=== PATIENT | male | born 1970 | race Caucasian/White ===

== ENCOUNTER 2023-07-09 07:17 | Inpatient (IN) ==
--- NOTE | 2023-07-07 09:31 | Anesthesiology Consultation ---
Date of Service July 07, 2023 Assessment & Plan (1) Encounter for pre-operative examination: - check type and screen STAT am DOS. - Per tandem mill roller on 07/01/23: No known infectious disease contacts, current infectious disease symptoms in past 10 days or COVID positive test result in the past 30 days. Acceptable to proceed pending anesthesiologist evaluation am DOS regarding persistent minimal cough and sinus drainage since 04/2023 illness. Chart Review Chart Review: Acceptable Risk for Surgery and Patient NOT seen in Pre Admission Testing History Surgery Operation Date: 07/09/23 07:45 Proposed Procedures p L2-S1 Decompression Fusion, Spinal Cord Monitoring - Srini Rosa DO Height/Weight Height: 5 ft 6 in Weight: 114.305 kg Allergies Allergy/AdvReac Type Severity Reaction Status Date / Time No Known Allergies Allergy Verified 07/01/23 11:52 Medications Home Medications Medication Instructions Recorded Confirmed Last Taken Cbd Oil 1 dose UD 07/01/23 07/01/23 Unknown acetaminophen 650 mg 650 - 1,300 mg PO TID 07/01/23 07/01/23 Unknown tablet,extended release albuterol sulfate 90 mcg/actuation 1 inh inhalation UD PRN asthma 07/01/23 07/01/23 Unknown aerosol inhaler amlodipine 5 mg tablet 5 mg PO QAM 07/01/23 07/01/23 Unknown diclofenac sodium 1 % topical gel 2 g topical DAILY 07/01/23 07/01/23 Unknown dupilumab 300 mg/2 mL subcutaneous 300 mg subcut UD 07/01/23 07/01/23 Unknown syringe (Dupixent) escitalopram oxalate 10 mg tablet 10 mg PO QPM 07/01/23 07/01/23 Unknown (Lexapro) fluticasone propionate 110 1 puff inhalation BID 07/01/23 07/01/23 Unknown mcg/actuation HFA aerosol inhaler fluticasone propionate 50 1 spray intranasal BID 07/01/23 07/01/23 Unknown mcg/actuation nasal spray,suspension hydrochlorothiazide 12.5 mg tablet 12.5 mg PO QAM 07/01/23 07/01/23 Unknown ibuprofen 200 mg tablet 400 mg PO QID PRN Pain 07/01/23 07/01/23 Unknown levocetirizine 5 mg tablet (Xyzal) 5 mg PO QPM 07/01/23 07/01/23 Unknown levothyroxine 25 mcg tablet 50 mcg PO QAM 07/01/23 07/01/23 Unknown losartan 50 mg tablet 50 mg PO QAM 07/01/23 07/01/23 Unknown multivitamin 1 cap PO QAM 07/01/23 07/01/23 Unknown naproxen 500 mg tablet 500 mg PO BID 07/01/23 07/01/23 Unknown omeprazole 20 mg tablet,delayed 20 mg PO QAM 07/01/23 07/01/23 Unknown release secukinumab 150 mg/mL subcutaneous 300 mg subcut UD 07/01/23 07/01/23 Unknown syringe (Cosentyx) Past Medical History Medical History Acid reflux Ankylosing spondylitis Asthma controlled/last use rescue inhaler yrs ago. History of anesthesia reaction hx short tempered/not violent. HTN (hypertension) Legg-Perthes disease hx Pinched nerve lumbar Sinus problem sinus inflammation. Thyroid disease Past Surgical History Surgical History History of carpal tunnel release of both wrists History of ear surgery History of foot surgery right History of sinus surgery History of tonsillectomy History of total left hip replacement History of urologic surgery hx kinked ureter, 2 stent sx's and 1 open procedure for. Social History Smoking Status: Never smoker Do You Dip or Chew Tobacco: No Hx Alcohol Use: No Hx Substance Use: No substance use type: does not use Testing Laboratory Results 05/24/2023 WBC: 5.8 H/H: 14/41 PLATELETS: 254,000 SODIUM: 137 POTASSIUM: 4.1 CHLORIDE: 99 CO2: 29 BUN: 13 CREATININE: 1 GLUCOSE: 101 PT: 12 PTT: 28 INR: 1 Electrocardiogram Date: 05/24/23 Sinus rhythm with occasional PVCs, rate 72 bpm Chest X-Ray Date: 06/21/23 No acute findings Other Testing Surgeon's office notified no UA or type and screen were done which are typically ordered by Dr. Rosa. Type and screen is required by [facility] and will be ordered DOS. To surgeon's discretion/coordination if UA/urine culture will be needed.
[~2023-07-09 07:17] MED LIST: ACETAMINOPHEN 500 MG TAB PO SCH; CeleBREX 200 MG CAP PO SCH; GABAPENTIN 600 MG DOSE PO SCH; LR 15ML/HR IV SCH; LR 60ML/HR IV SCH; ceFAZolin 2000MG 2,000 MG/15 ML SYR IV SCH
[2023-07-09] MEDS ORDERED: BUPIVACAINE/EPINEPHRINE 0.5% MPF 1:200,000 30 ML VIAL ONE (07:51)
[2023-07-09] MEDS ORDERED: ceFAZolin 330 MG/ML 1 GM VIAL ONE (07:51)
[2023-07-09] MEDS ORDERED: fentaNYL citrate PF 100 MCG/2 ML VIAL ONE (08:53)
[2023-07-09] MEDS ORDERED: MIDAZOLAM HCL 1 MG/ML 2ML VIAL ONE (08:53)
[2023-07-09] MEDS ORDERED: HYDROmorphone INJ 1 MG/ML SYRINGE IV PRN ×2 (08:56→14:55)
[2023-07-09] MEDS ORDERED: ONDANSETRON INJ 2 MG/ML 2 ML VIAL IV PRN ×2 (08:56→14:55)
[2023-07-09] MEDS ORDERED: fentaNYL citrate PF 100 MCG/2 ML VIAL IV PRN (08:56)
[2023-07-09] MEDS ORDERED: ePHEDrine sulfate 50 MG/ML AMP IV PRN (08:56)
[2023-07-09] MEDS ORDERED: ATROPINE SULFATE 0.1 MG/ML 10ML SYR IV PRN (08:56)
--- NOTE | 2023-07-09 09:01 | History & Physical Report ---
Date of Service July 09, 2023 Assessment & Plan (1) Neurogenic claudication due to lumbar spinal stenosis: Plan: L2-S1 decompression and fusion History of Present Illness Chief Complaint: Back and leg pain Primary Care Provider: Estefania Lanza PA-C This is a 53-year-old male who presents with chronic persistent back and leg pain and failing since course of nonoperative care is here for surgical intervention. Allergies Allergy/AdvReac Type Severity Reaction Status Date / Time No Known Allergies Allergy Verified 07/09/23 07:47 Home Medications Medication Instructions Recorded Confirmed Type Cbd Oil 1 dose UD 07/01/23 07/09/23 History acetaminophen 650 mg 650 - 1,300 mg PO TID 07/01/23 07/09/23 History tablet,extended release albuterol sulfate 90 mcg/actuation 1 inh inhalation UD PRN asthma 07/01/23 07/09/23 History aerosol inhaler amlodipine 5 mg tablet 5 mg PO QAM 07/01/23 07/09/23 History diclofenac sodium 1 % topical gel 2 g topical DAILY 07/01/23 07/09/23 History dupilumab 300 mg/2 mL subcutaneous 300 mg subcut UD 07/01/23 07/09/23 History syringe (Dupixent) escitalopram oxalate 10 mg tablet 10 mg PO QPM 07/01/23 07/09/23 History (Lexapro) fluticasone propionate 110 1 puff inhalation BID 07/01/23 07/09/23 History mcg/actuation HFA aerosol inhaler fluticasone propionate 50 1 spray intranasal BID 07/01/23 07/09/23 History mcg/actuation nasal spray,suspension hydrochlorothiazide 12.5 mg tablet 12.5 mg PO QAM 07/01/23 07/09/23 History ibuprofen 200 mg tablet 400 mg PO QID PRN Pain 07/01/23 07/09/23 History levocetirizine 5 mg tablet (Xyzal) 5 mg PO QPM 07/01/23 07/01/23 History levothyroxine 25 mcg tablet 50 mcg PO QAM 07/01/23 07/09/23 History losartan 50 mg tablet 50 mg PO QAM 07/01/23 07/09/23 History multivitamin 1 cap PO QAM 07/01/23 07/09/23 History naproxen 500 mg tablet 500 mg PO BID 07/01/23 07/09/23 History omeprazole 20 mg tablet,delayed 20 mg PO QAM 07/01/23 07/09/23 History release secukinumab 150 mg/mL subcutaneous 300 mg subcut UD 07/01/23 07/09/23 History syringe (Cosentyx) acidophilus 100 million 1 cap PO BID 07/09/23 07/09/23 History cell-pectin, citrus 10 mg capsule Past Med/Surg History Medical History Acid reflux Ankylosing spondylitis Asthma controlled/last use rescue inhaler yrs ago. History of anesthesia reaction hx short tempered/not violent. HTN (hypertension) Legg-Perthes disease hx Pinched nerve lumbar Sinus problem sinus inflammation. Thyroid disease Surgical History History of carpal tunnel release of both wrists History of ear surgery History of foot surgery right History of sinus surgery History of tonsillectomy History of total left hip replacement History of urologic surgery hx kinked ureter, 2 stent sx's and 1 open procedure for. Social History Smoking Status: Never smoker Do You Dip or Chew Tobacco: No; Hx Alcohol Use: No Hx Substance Use: No Preferred Language: Portuguese Communication Ability: Effective Robotic Machine Operator Required: No Beliefs That Will Affect Care: None Current Living Situation: Spouse and Family Other Information That Helps Us Care for You: No Feels Safe at Home: Yes Assistive Devices: Cane and Glasses Physical Exam Physical Exam: Patient is alert and oriented Heart regular in rhythm Lungs clear Results & Data Results & Data Vital Signs (Past 12 Hours) Vital Signs Temp Pulse Resp BP Pulse Ox O2 Del Method 07/09/23 07:45 36.8 C 77 18 138/84 96 Room Air
--- NOTE | 2023-07-09 09:01 | History & Physical Bridge Note ---
Date of Service July 09, 2023 History & Physical Bridge Note I have examined the patient, reviewed the History & Physical and in the interval since the performance of the History & Physical I have noted the following changes of clinical significance: no changes noted
[2023-07-09] MEDS ORDERED: HYDROmorphone INJ 2 MG/ML SYR/VIAL ONE (09:27)
[2023-07-09] MEDS ORDERED: PROPOFOL IV EMULSION 10 MG/ML 20 ML VIAL IV ONE (09:27)
[2023-07-09] MEDS ORDERED: KETAMINE HCL 10MG/ML SYR ONE (10:07)
[2023-07-09] MEDS ORDERED: ROCURONIUM BROMIDE 10 MG/ML 5 ML VIAL IV ONE ×2 (10:27→11:52)
[2023-07-09] MEDS ORDERED: ePHEDrine sulfate 50 MG/5 ML SYR ONE (10:34)
[2023-07-09] MEDS ORDERED: FLOSEAL HEMOSTATIC MATRIX 10ML TOP ONE (10:37)
[2023-07-09] MEDS ORDERED: DEXAMETHASONE SOD INJ 4 MG/ML VIAL ONE (10:50)
[2023-07-09] MEDS ORDERED: ONDANSETRON INJ 2 MG/ML 2 ML VIAL ONE (10:52)
[2023-07-09] MEDS ORDERED: SUGAMMADEX SODIUM 200 MG/2 ML VIAL IV ONE (10:53)
--- NOTE | 2023-07-09 12:56 | Operative Report ---
Post Operative Report Pre & Post Diagnosis Operation Date: 07/09/23 09:05 Pre-Op Diagnosis: Lumbar Disc Disease with Radiculopathy Lumbar spinal stenosis with neurogenic claudication Obesity Post-Op Diagnosis: Same I identified the patient and participated in the time-out.: Yes Procedure Operation Date: 07/09/23 09:05 Actual Procedures #1 lumbar decompression bilaterally facetectomies and foraminotomies L2-L3, L3- L4, L4-5 and L5-S1. #2 posterior spinal fusion L2-S1. #3 placed posterior segmental instrumentation L2-S1. #4 interbody fusion L3-L4, L4-5 and L5-S1. #5 placement Spira 12 x 26 mm at L3-L4 12 x 26 mm at L4-5 and 13 x 26 mm x 2 at L5- S1. #6 placement locally harvested morselized autograft in the posterior gutters per #7 placement of infuse collagen sponge combined with Koros in the posterior lateral gutters and Morpheus bone graft interbody space. Surgeon Srini Rosa, DO Yardage Control Operator Forming Ziggy Frank Estimated Blood Loss 850 Findings See Below Patient is 5 foot 6 weighing 114 kg with a BMI in excess of 40. Patient's body habitus did create significant technical difficulty from positioning exposure and the procedure self and at least 50% increased operative time. Specimens None Indications This is a 53-year-old male with above-mentioned diagnosis after failing since course of nonoperative care is here for surgical invention. Description of Procedure Patient met with identified informed consent obtained. Patient was then taken to the operative suite underwent patient placed in a prone position jacks table top Nigel frame. All bony prominences well-padded eyes inspected to ensure no external pressure spinal. This point the lumbar spine was prepped and draped in a sterile fashion. Sharp dissection with the assistance of Bovie cautery from down to and exposing the lamina transverse processes of L2-L3 L4-5 sacral ala bilaterally. From caudal cephalad fashion complete laminectomy of L5 L4 L3 and L2 was performed including bilateral medial facetectomies and foraminotomies addressing severe spinal stenosis. Pedicle screws were then placed in L2 L3-L4-L5 and S1 levels bilaterally with assistance of fluoroscopy and appropriate sized hawk placed. By way the transforaminal approach on the left and discectomy of L5-S1 was performed endplates guided to subcortical bleeding bone and a 13 x 26 mm Spira cage filled with Morpheus tapped in position. Then proceeded to L5-S1 transforaminal region on the right completed the discectomy curetted the endplates to subcortical bleeding bone and placed a second 13 x 26 mm Spira cage filled with Morpheus into position. And then proceeded to L for L5 and by way of transforaminal approach on the left complete discectomy performed endplates guided to subcortical bleeding bone and a 12 x 26 mm Spira cage filled with Morpheus tapped into position. Lastly I proceeded to L3-L4 and by way the transforaminal approach the left complete discectomy performed endplates guided to subcortical bleeding bone and a 13 x 26 mm Spira cage filled with Morpheus tapped in position per the rods then compressed locked into final position bilaterally. The transverse processes of L2-L3 L4-5 and sacral ala burred to subcortically bone. Infuse collagen sponge combined with Koros and local autograft placed in the posterior gutters. 15 round SEE inserted. The incision was then closed with 1 Vicryl the fascia 2-0 Vicryl subcutaneously and 4 Monocryl for final skin closure. Steri-Strips sterile dressing placed. Patient waken taken PACU stable condition. Please note spinal cord monitoring was utilized at the procedure no changes noted. Lastly Ziggy Frank was present at the entire surgeon while the patient positioning complex portion of the surgery and final skin closure. I attest to the content of the Intraoperative Record and any orders documented therein. Any exceptions are noted below.
--- NOTE | 2023-07-09 13:18 | Fluoroscopy Report ---
FL lumbar spine 2-3V CLINICAL HISTORY: L2-S1 DECOMPRESSION AND FUSION COMPARISON STUDY: None FLUOROSCOPY TIME: 34 seconds FLUOROSCOPY IMAGES: 4 EXPOSURE DOSE: 32.49 mGy FINDINGS: Posterior interbody rods and screw fusion hardware at L2-S1 with L3-S1 discectomy. Multilev el spondylotic spurring. No acute fracture or unexpected opaque foreign body identified. IMPRESSION: Fluoroscopic assistance as above. ACT 112: Negative or not required by law. Electronically signed by: Mandeep Platt M.D. 07/09/2023 1:17 PM
[2023-07-09] MEDS ORDERED: HYDROmorphone INJ 0.5 MG/0.5 ML SYR IV PRN (14:55)
[2023-07-09] MEDS ORDERED: ONDANSETRON 4 MG OD TAB PO PRN (14:55)
[2023-07-09] MEDS ORDERED: FAMOTIDINE 20 MG TAB PO PRN (14:55)
[2023-07-09] MEDS ORDERED: traMADol HCL 50 MG TABLET PO PRN (14:55)
[2023-07-09] MEDS ORDERED: LORazepam 0.5 MG TAB PO PRN (14:55)
[2023-07-09] MEDS ORDERED: diphenhydrAMINE Capsule 25 MG CAP PO PRN (14:55)
[2023-07-09] MEDS ORDERED: bisacodyL 10 MG SUPP PR PRN (14:55)
[2023-07-09] MEDS ORDERED: LORazepam 0.5 MG in SYRINGE 0.25 ML IV PRN (14:55)
[2023-07-09] MEDS ORDERED: DO NOT ADMINISTER PNEUMOCOCCAL VACCINE PRN (14:55)
[2023-07-09] MEDS ORDERED: MAGNESIUM HYDROXIDE SUSP 30 ML UDC PO PRN (14:55)
[2023-07-09] MEDS ORDERED: DO NOT ADMINISTER FLU VACCINE PRN (14:55)
[2023-07-09] MEDS ORDERED: ALUMINUM/MAGNESIUM SUSP 30 ML UDC PO PRN (14:55)
[2023-07-09] MEDS ORDERED: SOD PHOSPHATE/SOD BIPHOSPHATE ENEMA 132 ML BTL PR PRN (14:55)
[2023-07-09] MEDS ORDERED: METOCLOPRAMIDE HCL INJ 5 MG/ML 2 ML VIAL IV PRN (14:55)
[2023-07-09] MEDS ORDERED: PROMETHAZINE HCL 12.5 MG in SODIUM CHLORIDE 0.9% 50 ML IV PRN (14:55)
[2023-07-09] MEDS ORDERED: NALOXONE HCL 0.4 MG/1 ML VIAL/CARP IV PRN (14:55)
[2023-07-09] MEDS ORDERED: ACETAMINOPHEN 1,000 MG/100 ML VIAL IV PRN (14:55)
[2023-07-09] MEDS ORDERED: hydrOXYzine HCl 25 MG TAB PO PRN (14:55)
[2023-07-09] MEDS: LACTATED RINGER'S 1,000 ML IV SCH ×2 (14:55→19:56)
--- NOTE | 2023-07-09 14:55 | Anesthesiology Progress Note ---
Date of Service July 09, 2023 Anesthesia Post Procedure Vital Signs Vital Signs: Temp Pulse Pulse Resp BP Pulse Ox O2 Del Method 07/09/23 14:40 96 H 13 108/88 95 Nasal Cannula 07/09/23 14:30 92 H 12 112/82 92 Nasal Cannula 07/09/23 14:20 98.4 F 92 H 16 124/76 94 Nasal Cannula 07/09/23 14:10 101 H 20 103/71 94 Nasal Cannula 07/09/23 14:00 95 H 14 126/74 97 Oxymask 07/09/23 13:50 94 H 12 130/78 97 Oxymask 07/09/23 13:40 97 H 13 135/82 95 Oxymask 07/09/23 13:33 98.6 F 98 H 18 136/82 97 Oxymask 07/09/23 07:45 98.2 F 77 18 138/84 96 Room Air O2 Flow Rate 07/09/23 14:40 2 07/09/23 14:30 2 07/09/23 14:20 2 07/09/23 14:10 2 07/09/23 14:00 9 07/09/23 13:50 9 07/09/23 13:40 9 07/09/23 13:33 9 07/09/23 07:45 Pain Intensity Left Leg: Pain Intensity: 2 Back: Pain Intensity: 4 Transfer of Care Handoff Completed per policy Notes Mental Status: alert / awake / arousable and participated in evaluation Patient Amnestic to Procedure: Yes Nausea / Vomiting: adequately controlled Pain: adequately controlled Airway Patency, RR, SpO2: stable & adequate BP & HR: stable & adequate Hydration State: stable & adequate Anesthetic Complications: no major complications apparent and Pt Satisfied with anesthetic care
--- NOTE | 2023-07-09 15:29 | Hospitalist Consultation ---
Date of Consultation July 09, 2023 Assessment & Plan (1) Neurogenic claudication due to lumbar spinal stenosis: Pain / VTE / Bowel management per primary orthopedic team (2) Rash of hand: Localized petechiae - suspect unintentional trauma at time of surgery. Continue to monitor for alternative sites suggestive of underlying systemic problem. Platelets and coags with AM labs. (3) HTN (hypertension): Held losartan and HCTZ today but took amlodipine Given current BP measurements will place all on hold tomorrow but likely can restart amlodipine if BP stable without dizziness. (4) Acid reflux: Switch omeprazole to pantoprazole per hospital formulary (5) Hypothyroidism: TSH previously normal per patient but not on pre-op testing, no need to repeat Continue levothyroxine (6) Anxiety: Continue Lexapro (7) Obstructive sleep apnea: Patient may use own CPAP (8) Chronic sinusitis: Dupixent - took yesterday, continue as outpatient (9) Ankylosing spondylitis: Cosentyx last took on Wednesday Plan Thank you for the consult. We will continue to review the patient with post op labs tomorrow. History of Present Illness Reason for Consultation: Medical management Attending Physician: Srini Rosa, DO History of Present Illness Patricio Hung is a 53-year-old male POD#0 lumbar decompression. Estimated blood loss 850ml. Right hand rash just noticed since surgery around 6pm. No rash elsewhere. Not itchy. Otherwise no concerns or questions. He reports his chronic medical conditions notes above are well controlled. Allergies Allergy/AdvReac Type Severity Reaction Status Date / Time No Known Allergies Allergy Verified 07/09/23 07:47 Home Medications Medication Instructions Recorded Confirmed Type Cbd Oil 1 dose UD 07/01/23 07/09/23 History acetaminophen 650 mg 650 - 1,300 mg PO TID 07/01/23 07/09/23 History tablet,extended release albuterol sulfate 90 mcg/actuation 1 inh inhalation UD PRN asthma 07/01/23 07/09/23 History aerosol inhaler amlodipine 5 mg tablet 5 mg PO QAM 07/01/23 07/09/23 History diclofenac sodium 1 % topical gel 2 g topical DAILY 07/01/23 07/09/23 History dupilumab 300 mg/2 mL subcutaneous 300 mg subcut UD 07/01/23 07/09/23 History syringe (Dupixent) escitalopram oxalate 10 mg tablet 10 mg PO QPM 07/01/23 07/09/23 History (Lexapro) fluticasone propionate 110 1 puff inhalation BID 07/01/23 07/09/23 History mcg/actuation HFA aerosol inhaler fluticasone propionate 50 1 spray intranasal BID 07/01/23 07/09/23 History mcg/actuation nasal spray,suspension hydrochlorothiazide 12.5 mg tablet 12.5 mg PO QAM 07/01/23 07/09/23 History ibuprofen 200 mg tablet 400 mg PO QID PRN Pain 07/01/23 07/09/23 History levocetirizine 5 mg tablet (Xyzal) 5 mg PO QPM 07/01/23 07/01/23 History levothyroxine 25 mcg tablet 50 mcg PO QAM 07/01/23 07/09/23 History losartan 50 mg tablet 50 mg PO QAM 07/01/23 07/09/23 History multivitamin 1 cap PO QAM 07/01/23 07/09/23 History naproxen 500 mg tablet 500 mg PO BID 07/01/23 07/09/23 History omeprazole 20 mg tablet,delayed 20 mg PO QAM 07/01/23 07/09/23 History release secukinumab 150 mg/mL subcutaneous 300 mg subcut UD 07/01/23 07/09/23 History syringe (Cosentyx) acidophilus 100 million 1 cap PO BID 07/09/23 07/09/23 History cell-pectin, citrus 10 mg capsule oxycodone 5 mg tablet 5 mg PO Q6H PRN pain #30 tabs 07/10/23 Rx tramadol 50 mg tablet 50 mg PO Q6H PRN pain, moderate 07/10/23 Rx #30 tabs Patient History Medical History (Updated 07/09/23 @ 18:23 by Ivan Reyes MD) Anxiety Acid reflux Ankylosing spondylitis HTN (hypertension) Chronic sinusitis Hypothyroidism Pinched nerve lumbar History of anesthesia reaction hx short tempered/not violent. Legg-Perthes disease hx Asthma controlled/last use rescue inhaler yrs ago. Sinus problem sinus inflammation. Surgical History History of carpal tunnel release of both wrists History of foot surgery right History of total left hip replacement History of urologic surgery hx kinked ureter, 2 stent sx's and 1 open procedure for. History of tonsillectomy History of ear surgery History of sinus surgery Social History Smoking Status: Never smoker Do You Dip or Chew Tobacco: No; Hx Alcohol Use: No Hx Substance Use: No Preferred Language: Moroccan Communication Ability: Effective Residential Sales Rep Required: No Beliefs That Will Affect Care: None Current Living Situation: Spouse and Family Other Information That Helps Us Care for You: No Feels Safe at Home: Yes Assistive Devices: Cane and Glasses Review of Systems 2 Review of Systems: All systems reviewed & are unremarkable except as noted in HPI & below Physical Exam 2 Constitutional: WD/WN, vitals as above Respiratory: normal respiratory effort, lungs clear to auscultation Cardiovascular: Rate/Rhythm: regular rate and regular rhythm Heart Sounds: no murmur Gastrointestinal (Abdomen): Inspection/Auscultation: abdomen normal to inspection; abdomen not distended Percussion/Palpation: abdomen soft; abdomen nontender, no guarding and abdomen not rigid Skin: Petechiae on right hand Neurologic: moves all extremities and awake; not confused Results & Data Results & Data Vital Signs (Past 12 Hours) Vital Signs Temp Pulse Pulse Resp BP Pulse Ox O2 Del Method 07/09/23 15:22 36.3 C L 104 H 16 120/78 95 Nasal Cannula 07/09/23 14:55 Nasal Cannula 07/09/23 14:55 36.4 C L 94 H 14 111/72 95 Nasal Cannula 07/09/23 14:40 96 H 13 108/88 95 Nasal Cannula 07/09/23 14:30 92 H 12 112/82 92 Nasal Cannula 07/09/23 14:20 36.9 C 92 H 16 124/76 94 Nasal Cannula 07/09/23 14:10 101 H 20 103/71 94 Nasal Cannula 07/09/23 14:00 95 H 14 126/74 97 Oxymask 07/09/23 13:50 94 H 12 130/78 97 Oxymask 07/09/23 13:40 97 H 13 135/82 95 Oxymask 07/09/23 13:33 37.0 C 98 H 18 136/82 97 Oxymask 07/09/23 07:45 36.8 C 77 18 138/84 96 Room Air O2 Flow Rate 07/09/23 15:22 2 07/09/23 14:55 2 07/09/23 14:55 2 07/09/23 14:40 2 07/09/23 14:30 2 07/09/23 14:20 2 07/09/23 14:10 2 07/09/23 14:00 9 07/09/23 13:50 9 07/09/23 13:40 9 07/09/23 13:33 9 07/09/23 07:45 PG Care Time/CCT Total # of Minutes Spent Total Time Spent with Patient: Total time spent is greater than 50% in coordination of care (as documented) at patient's floor/unit and/or counseling patient: Coding Level of Care Code 59716 IN/OBS CONSULT LVL 4,60M Diagnoses Neurogenic claudication due to lumbar spinal stenosis M48.062 Rash of hand R21 HTN (hypertension) I10 Acid reflux K21.9 Hypothyroidism E03.9 Anxiety F41.9 Obstructive sleep apnea G47.33 Chronic sinusitis J32.9 Ankylosing spondylitis M45.9
[2023-07-09] MEDS: ceFAZolin 2000MG 2,000 MG/15 ML SYR IV SCH (17:21)
[2023-07-09] MEDS: FLUTICASONE PROPIONATE NA SPR 16 GM BTL SCH (19:53)
[2023-07-09] MEDS: FLUTICASONE FUROATE 100MCG 14 PUFFS/INHALER INH SCH (19:54)
[2023-07-09] MEDS: CETIRIZINE HCL 10 MG TABLET PO SCH (19:54)
[2023-07-09] MEDS: DOCUSATE SODIUM/SENNA 50/8.6MG TAB PO SCH (19:54)
[2023-07-09] MEDS: ESCITALOPRAM OXALATE 10 MG TAB PO SCH (19:55)
[2023-07-09] MEDS: ACETAMINOPHEN 500 MG TAB PO PRN (21:40)
[2023-07-10] MEDS: oxyCODONE HCL IR 5 MG TAB (IMMEDIATE RELEASE) PO PRN ×2 (00:33→18:44)
[2023-07-10] MEDS: ceFAZolin 2000MG 2,000 MG/15 ML SYR IV SCH (01:19)
[2023-07-10] MEDS: LACTATED RINGER'S 1,000 ML IV SCH (02:20)
[2023-07-10] MEDS: POLYETHYLENE (MIRALAX) 17 GM PACK PO SCH ×4 (05:18→23:25)
[2023-07-10] MEDS: LEVOTHYROXINE SODIUM 50 MCG TABLET PO SCH (05:18)
[2023-07-10 07:05] LABS: Basophils # (auto) 0.01 K/uL (0.00-0.20); Basophils % (auto) 0.1 %; Hematocrit (blood only) 33.7 % (42.0-52.0); Hemoglobin 10.8 g/dl (14.0-18.0); Immature Granulocytes # (auto) 0.08 K/uL (0.01-0.20); Immature Granulocytes % (auto) 0.6 %; Lymphocytes # (auto) 0.87 K/uL (1.20-3.40); Lymphocytes % (auto) 6.5 %; Mean Corpuscular Hemoglobin 29.5 pg (25.0-34.0); Mean Corpuscular Volume 92.1 fL (80.0-100.0); Monocytes # (auto) 0.84 K/uL (0.11-0.59); Monocytes % (auto) 6.3 %; Neutrophils # (auto) 11.52 K/uL (1.40-6.50); Neutrophils % (auto) 86.5 %; Platelet Count 263 K/uL (130-400); RDW Coefficient of Variation 14.6 % (11.5-14.5); RDW Standard Deviation 49.4 fL (36.4-46.3); Red Blood Count 3.66 M/uL (4.70-6.10); White Blood Count 13.32 K/ul (4.8-10.8)
[2023-07-10 07:40] LABS: Partial Thromboplastin Ratio 0.9; Partial Thromboplastin Time 26 Seconds (21-31); Prothrombin Time 11.1 Seconds (9.0-12.0)
[2023-07-10 07:41] LABS: BUN Creatinine Ratio 18.4 (10-20); Calcium 8.7 mg/dl (8.6-10.3); Creatinine Clr Calc Pharmacy 101.1 ml/min; Est GFR (African American) 100.2 ml/min; Est GFR (Non-African American) 86.4 ml/min; Potassium 4.3 mmol/L (3.5-5.1)
[2023-07-10] MEDS: PANTOprazole 40 MG TAB PO SCH (08:16)
[2023-07-10] MEDS: MULTIVITAMIN TAB PO SCH (08:16)
[2023-07-10] MEDS: FLUTICASONE PROPIONATE NA SPR 16 GM BTL SCH ×2 (08:17→20:15)
[2023-07-10] MEDS: FLUTICASONE FUROATE 100MCG 14 PUFFS/INHALER INH SCH (08:17)
[2023-07-10] MEDS: dexAMETHasone 6 MG in SYRINGE 0 ML IV SCH (08:19)
[2023-07-10] MEDS ORDERED: amLODIPine BESYLATE 5 MG TAB PO SCH (09:00)
[2023-07-10] MEDS ORDERED: hydroCHLOROthiazide 25 MG TAB PO SCH (09:00)
[2023-07-10] MEDS ORDERED: LOSARTAN POTASSIUM 50 MG TAB PO SCH (09:00)
--- NOTE | 2023-07-10 09:59 | Orthopedic Progress Note ---
Date of Service July 10, 2023 Assessment & Plan (1) Neurogenic claudication due to lumbar spinal stenosis: Plan: At this time continue physical therapy monitor his SEE output anticipate discharge home soon. Admission and Anticipated Discharge Date Admission Date: July 09, 2023 Subjective Back pain controlled leg pain improved Physical Exam Physical Exam: Patient is seen but bed appears comfortable. Is constricted testing. Results & Data Vital Signs (Past 12 Hours) Vital Signs Temp Pulse Resp BP Pulse Ox O2 Del Method 07/10/23 07:39 36.7 C 79 16 120/76 95 Room Air 07/10/23 04:00 36.4 C L 80 16 111/68 95 Room Air 07/10/23 00:01 36.6 C 88 18 106/67 93 Room Air Queries Orthopedic Spine Acute Posthemorrhagic Anemia: Yes Obesity: Yes
--- NOTE | 2023-07-10 15:19 | Hospitalist Progress Note ---
Date of Service July 10, 2023 Assessment & Plan (1) Neurogenic claudication due to lumbar spinal stenosis: Plan: Pain / VTE / Bowel management per primary orthopedic team (2) Rash of hand: Plan: Localized petechiae - suspect unintentional trauma/compression at time of surgery. -improved, no evidence of infection or systemic process -reviewed coags, platelets normal (3) HTN (hypertension): Plan: home meds held: losartan 50, amlodipine 5, HCTZ 12.5 normotensive this AM BP 120 off meds, mild lightheadedness when first standing then resolved -assess in AM for resumption of one or several of these (4) Acid reflux: Plan: Switch omeprazole to pantoprazole per hospital formulary (5) Hypothyroidism: Plan: TSH previously normal per patient but not on pre-op testing, no need to repeat Continue levothyroxine (6) Anxiety: Plan: Continue Lexapro (7) Obstructive sleep apnea: Plan: Patient may use own CPAP (8) Chronic sinusitis: Plan: Dupixent - continue as outpatient (9) Ankylosing spondylitis: Plan: Cosentyx last took on Wednesday NSAIDS held postop Admission and Anticipated Discharge Date Admission Date: July 09, 2023 Subjective Doing well, saw ambulating in the diaz with PT, later in the room. Still has drain in place. Right hand erythema has improved, no pain or itching. BP normal at 120 this morning without medications Physical Exam 2 Physical Exam: PHYSICAL EXAMINATION Last 24h vital signs reviewed, see documentation in flowsheet General: comfortable appearing, no distress HEENT: Normocephalic, atraumatic, pupils round and equal, sclerae anicteric, no conjunctival injection, moist mucus membranes Lungs: Normal respiratory effort. Clear to auscultation bilaterally. No RRW Heart: Regular rate and rhythm, no murmurs. No JVD Abdomen: Soft, nontender, nondistended. Bowel sounds present. SEE drain present with serosanguineous drainage Extremities: Warm, dry, well-perfused. trace lower extremity edema. ventral surface of right hand with mild erythema appearance of broken capillaries extend slightly onto wrist not warm or indurated Neuro: Alert and oriented x 4, face symmetric, moves 4 extremities well, observed to walk well in hallway Psych: Normal affect and behavior Results & Data Results & Data Vital Signs (Past 12 Hours) Vital Signs Temp Pulse Resp BP Pulse Ox O2 Del Method 01/27/24 07:39 36.7 C 79 16 120/76 95 Room Air 07/10/23 04:00 36.4 C L 80 16 111/68 95 Room Air Laboratory Results 07/10/23 06:17 07/10/23 06:17 PG Care Time/CCT Total # of Minutes Spent Total Time Spent with Patient: Total time spent is greater than 50% in coordination of care (as documented) at patient's floor/unit and/or counseling patient: Coding Level of Care Code 85809 SUB INP/OBS CARE 2/35MIN Diagnoses Neurogenic claudication due to lumbar spinal stenosis M48.062 Rash of hand R21 HTN (hypertension) I10 Acid reflux K21.9 Hypothyroidism E03.9 Anxiety F41.9 Obstructive sleep apnea G47.33 Chronic sinusitis J32.9 Ankylosing spondylitis M45.9
[2023-07-10] MEDS: DOCUSATE SODIUM/SENNA 50/8.6MG TAB PO SCH (20:14)
[2023-07-10] MEDS: ESCITALOPRAM OXALATE 10 MG TAB PO SCH (20:15)
[2023-07-10] MEDS: CETIRIZINE HCL 10 MG TABLET PO SCH (20:15)
[2023-07-11] MEDS: oxyCODONE HCL IR 5 MG TAB (IMMEDIATE RELEASE) PO PRN (04:27)
[2023-07-11] MEDS: LEVOTHYROXINE SODIUM 50 MCG TABLET PO SCH (05:42)
[2023-07-11] MEDS: POLYETHYLENE (MIRALAX) 17 GM PACK PO SCH (05:42)
--- NOTE | 2023-07-11 08:31 | Hospitalist Progress Note ---
Date of Service July 11, 2023 Assessment & Plan (1) Neurogenic claudication due to lumbar spinal stenosis: Plan: Pain / VTE / Bowel management per primary orthopedic team (2) HTN (hypertension): Plan: home meds held: losartan 50, amlodipine 5, HCTZ 12.5 for postop mild hypotension 143/84 this AM -resume losartan and HCTZ -can monitor BP with home cuff and resume amlodipine in a few days or a week -discussed with patient and added to discharge instructions (3) Rash of hand: Plan: Localized petechiae - suspect unintentional trauma/compression at time of surgery. -improved, no evidence of infection or systemic process -reviewed coags, platelets normal (4) Acid reflux: (5) Hypothyroidism: Plan: TSH previously normal per patient but not on pre-op testing, no need to repeat Continue levothyroxine (6) Anxiety: Plan: Continue Lexapro (7) Obstructive sleep apnea: Plan: Patient may use own CPAP (8) Chronic sinusitis: Plan: Dupixent - continue as outpatient (9) Ankylosing spondylitis: Plan: Cosentyx last took on Wednesday NSAIDS held postop Admission and Anticipated Discharge Date Admission Date: July 09, 2023 Subjective doing well this am. No lightheadedness or shortness of breath. R hand erythema fading. hoping for discharge home today. Physical Exam Physical Exam: PHYSICAL EXAMINATION Last 24h vital signs reviewed, see documentation in flowsheet General: comfortable appearing, no distress, sitting in chair HEENT: Normocephalic, atraumatic, pupils round and equal, sclerae anicteric, no conjunctival injection, moist mucus membranes Lungs: Normal respiratory effort. Clear to auscultation bilaterally. No RRW Heart: Regular rate and rhythm, no murmurs. No JVD Abdomen: nondistended. Bowel sounds present. Extremities: Warm, dry, well-perfused. trace lower extremity edema. ventral surface of right hand with mild erythema appearance of broken capillaries extend slightly onto wrist not warm or indurated - unchanged 07/11 Neuro: Alert and oriented x 4, face symmetric, moves 4 extremities well Psych: Normal affect and behavior Results & Data Results & Data Vital Signs (Past 12 Hours) Vital Signs Temp Pulse Resp BP Pulse Ox O2 Del Method 07/11/23 07:07 36.6 C 81 18 143/84 H 94 Room Air PG Care Time/CCT Total # of Minutes Spent Total Time Spent with Patient: Total time spent is greater than 50% in coordination of care (as documented) at patient's floor/unit and/or counseling patient: Coding Level of Care Code 53242 SUB INP/OBS CARE 2/35MIN Diagnoses Neurogenic claudication due to lumbar spinal stenosis M48.062 HTN (hypertension) I10 Rash of hand R21 Acid reflux K21.9 Hypothyroidism E03.9 Anxiety F41.9 Obstructive sleep apnea G47.33 Chronic sinusitis J32.9 Ankylosing spondylitis M45.9
[2023-07-11] MEDS: PANTOprazole 40 MG TAB PO SCH (08:46)
[2023-07-11] MEDS: MULTIVITAMIN TAB PO SCH (08:46)
[2023-07-11] MEDS: FLUTICASONE FUROATE 100MCG 14 PUFFS/INHALER INH SCH (08:47)
[2023-07-11] MEDS: ACETAMINOPHEN 500 MG TAB PO PRN (08:47)
[2023-07-11] MEDS: FLUTICASONE PROPIONATE NA SPR 16 GM BTL SCH (08:47)
[2023-07-11] MEDS: dexAMETHasone 6 MG in SYRINGE 0 ML IV SCH (08:49)
[2023-07-11] MEDS ORDERED: oxyCODONE IR HOME PACK PO ONE (11:28)
--- NOTE | 2023-07-11 11:30 | Discharge Summary ---
Date of Service July 11, 2023 Admission HPI Per Admitting Provider This is a 53-year-old male who presents with chronic persistent back and leg pain and failing since course of nonoperative care is here for surgical intervention. Principal Diagnosis Lumbar spinal stenosis with neurogenic claudication Discharge Data Allergies Allergy/AdvReac Type Severity Reaction Status Date / Time No Known Allergies Allergy Verified 07/09/23 07:47 Consultations 07/09/23 14:55 Consult Hospitalist Routine Procedures Performed Operation Date: 07/09/23 09:05 Actual Procedures p L2-S1 Decompression and Fusion, Spinal Cord Monitoring(Not Applicable) - Srini Rosa DO Ordered Studies 07/09/23 09:05 [place] lumbar spine 2-3V Routine Hospital Course (1) Neurogenic claudication due to lumbar spinal stenosis: Patient went multilevel lumbar decompression fusion tolerated this well was taken to the orthopedic for postoperative. Postop day #1 is up and ambulating progress throughout his hospital stay. SEE drain decreasing probably. Excellent strength testing. Subsequently discharged home. Discharge orders instructions found in chart for further review. Total Time Total Time Spent Total Time Spent (In Minutes): 20 minutes Discharge Plan Discharge Items Patient Disposition: Home - Self-Care Reason For Visit: Lumbar Disc Disease with Radiculopathy Discharge Diagnosis: Lumbar spinal stenosis with neurogenic claudication Activity: As commented below Non-emergency contact: Primary Care Provider Call non-emergency contact if: you have any medication questions Follow-up/Referrals: Estefania Lanza PA-C [Primary Care Provider] - Diet: Regular Addtl Attending Provider Instructions: ACTIVITY RECOMMENDATIONS: SELF CARE INSTRUCTIONS AFTER THORACIC/LUMBAR FUSIONS 1. You may walk to your tolerance. It is good exercise for your legs and back. Expect some back and intermittent leg aches and pains. 2. You may perform "counter-top" level activities (make a sandwich, carmel with a project, etc.). 3. No bending or lifting of more than 10 pounds or back twisting of any nature (roll like a log when turning in bed). 4. You may ride in a car for 20-30 minutes at a time. No driving until after your first visit with your doctor. 5. Frequent changes of position and restricting sitting to 30 minutes at a time will help limit the amount of back spasms and stiffness you may experience. 6. You may discontinue the use of ambulatory aids (cane, crutches, etc.) once your strength and confidence allow. 7. You may newsstand vendor the shower and let water strike your incision when you arrive home at least once daily. Do not take a tub bath, sit in a hot tub or go into a swimming pool until after your first recheck in the office. SPECIAL CARE INSTRUCTIONS: VERY IMPORTANT TO READ AND REVIEW A. Your surgical incision has been closed with a cosmetic suture under the skin that will dissolve in about 6 weeks. In 14 days, you can use a pair of clean scissors and cut the suture that is left outside of the skin at the ends of your incision. 1. The small skin tapes can be removed 7 days after surgery if they have not fallen off by that point. 2. You may keep the wound open to air as much as possible to promote healing after post-op day number 5 unless told otherwise by your doctor. 3. If you think the wound looks like it is becoming infected (redness or worsening drainage) and/or you are experiencing fever, chill or worsening back pain and muscle spasms, contact the office so that we may evaluate you as soon as possible. B. Complications are uncommon, but please contact us if you have any signs or symptoms of: 1. wound infection (fever higher than 102.5 degrees F, redness, separation of wound, drainage, or increasing pain from the incision) 2. blood clots in legs (pain, swelling, redness and warmth in legs) 3. urinary tract infection (fever higher than 102.5 degrees F, burning upon urination or increased frequency of urination) 4. nerve problems (inability to walk on your toes or heels, numbness, loss of bowel or bladder control) 5. any other symptoms that concern you C. Please call the office at if you have any concerns or questions about your operation or recovery. D. No smoking! Smoking drastically decreases the chance of a solid fusion. E. Do not take any anti-inflammatory medications (Indocin, Advil, Motrin, Aspirin, Naprosyn, etc.) as these may inhibit the chance of a solid fusion. Tylenol is okay to take for pain. MANAGING PAIN AFTER SPINAL SURGERY 1. Narcotic medication is intended for short-term use and will be provided for surgical pain. Surgical pain usually lasts for a period of 4-6 weeks. Narcotic medication includes Percocet, Vicodin, Darvocet, Tylenol #3 or Lortab. 2. Longer-term pain is more appropriately treated with non-narcotic medication such as Tylenol ES. 3. Muscle spasm is not appropriately treated with narcotics. Muscle relaxers such as Soma, Flexeril or Skelaxin can be used along with Tylenol ES. 4. Remember that we all live with some "aches and pains". This is not unusual or uncommon after an injury or as we get older. a. Back pain is expected and may include muscle spasms for 4 to 6 weeks after surgery. The pain should gradually improve. If the pain worsens for no apparent reason, please contact the office. b. Intermittent leg pain may also be experienced and should not be concerned about unless it worsens for no apparent reason. If so, please contact the office. 5. We will provide appropriate medication within the normal guidelines of their prescribed use. We will also be very cautious and aware of potential abuse and extended duration of patients' medication needs. a. Pain medications are for your comfort and to assist with sleep and rest so that the tissue can heal. They are not provided in order to return to normal activity and should not be used through the day. To do so or worsening pain at night can result from ongoing tissue damage and development of tolerance to the prescribed medicine. 6. Please allow 2-3 days to process refills. Prescriptions will not be mailed but must be picked up at the office. FOLLOW UP VISIT: Keep your scheduled follow-up appointment. Any questions, please call the office at . Addtl Flat Clothier Provider Instructions: Instructions from internal medicine -we restarted hydrochlorothiazide and lostartan on Tuesday 07/11 -keep track of your morning blood pressure and if it is generally staying 130 or higher (top number) and you are not having lightheadedness, you can resume your amlodipine within a few days or a week. If your morning BP is staying 120 or less and/or you are having lightheadedness, you can hold off on starting the amlodipine until you see your doctor -follow up with your primary care doctor for hypertension Renae Campos MD Pending Studies at Discharge: No Stand-Alone Forms: My [employer], Smoking Cessation Medications and DC Order Prescriptions: New tramadol 50 mg tablet 50 mg PO Q6H PRN (Reason: pain, moderate) Qty: 30 0RF oxycodone 5 mg tablet 5 mg PO Q6H PRN (Reason: pain) Qty: 30 0RF Continued losartan 50 mg Tablet 50 mg PO QAM amlodipine 5 mg Tablet 5 mg PO QAM levothyroxine 25 mcg Tablet 50 mcg PO QAM acetaminophen 650 mg Tablet Extended Release 650 - 1,300 mg PO TID Patient Comments: current, 1 am, 1 breakfast and 2 at bedtime. ibuprofen 200 mg Tablet 400 mg PO QID PRN (Reason: Pain) Patient Comments: current regular use 4x perday. Told to stop 7 days prior before surgery. multivitamin Capsule 1 cap PO QAM fluticasone propionate 50 mcg/actuation [place],Suspension 1 spray INTRANASAL BID Rx Instructions: administer into each nostril fluticasone propionate 110 mcg/actuation Hfa Aerosol Inhaler 1 puff INHALATION BID Patient Comments: 125 mcg strength. naproxen 500 mg Tablet 500 mg PO BID Patient Comments: Told to stop /pre op instructions. escitalopram oxalate [Lexapro] 10 mg Tablet 10 mg PO QPM hydrochlorothiazide 12.5 mg Tablet 12.5 mg PO QAM levocetirizine [Xyzal] 5 mg Tablet 5 mg PO QPM diclofenac sodium 1 % Gel 2 g TOPICAL DAILY Patient Comments: 1% Rx Instructions: apply to single elbow, wrist or hand; for hand includes palm/fingers/back of hand omeprazole 20 mg Tablet,Delayed Release (Dr/Ec) 20 mg PO QAM Cosentyx 150 mg/mL Syringe 300 mg SUBCUT UD Patient Comments: monthly - due 07/08/23. Dupixent Syringe 300 mg/2 mL Syringe 300 mg SUBCUT UD Patient Comments: Cbd Oil 1 dose UD Patient Comments: 3000 tincture from [facility] /50 in the morning 50 in the evening albuterol sulfate 90 mcg/actuation Hfa Aerosol Inhaler 1 inh INHALATION UD PRN (Reason: asthma) acidophilus-pectin, citrus 100 million cell-10 mg Capsule 1 cap PO BID Discharge Orders: Discharge Order (Routine); Ordered 07/11/23 Ordered By: Srini Rosa Admission Data Admit Date/Time: 07/09/23 13:02 Attending Provider: Srini Rosa Admit Provider: Srini Rosa Primary Care Provider: Estefania Lanza Other Providers: Feroz Hernandez
== END 2023-07-11 13:04 | disposition home or self-care (01) | DRG 454 ==
LOC: ASU 07:17 → 3E 13:02

== ENCOUNTER 2024-08-24 08:18 | Observation (INO) ==
--- NOTE | 2024-08-17 13:58 | Anesthesiology Consultation ---
Date of Service August 17, 2024 Assessment & Plan (1) Encounter for pre-operative examination: Chart Review Chart Review: Acceptable Risk for Surgery and Patient NOT seen in Pre Admission Testing -Pt seen by PCP 08/08/24 for surgeon-ordered clearance. Per note, "EKG in office showing normal sinus rhythm with occasional PVCs-needs cardiac clearance... Risk stratified, patient is medically optimized for surgery and considered high risk for moderate risk procedure... ADDENDUM: cardiac clearance obtained mike BARRIENTOS-note reviewed." -Pt seen by Cardiology 08/09/24. Per note, "Based upon the Revised Cardiac Risk Index (Santy Criteria) for pre-op cardiac clearance the pt is a very low risk at 0.04% to undergo anterior cervical discectomy... Single PVC on EKG at PCP, no clinical concern for pre-op clearance." Infectious Disease screening: Per PAT nursing assessment on 08/11/24, No known infectious disease contacts in past 10 days or current infectious disease symptoms. No recent travel outside the country. History Surgery Operation Date: 08/24/24 11:05 Proposed Procedures p C5-C7 Anterior Cervical Discectomy Fusion Possible C7-T1 Spinal Cord Monitoring - Srini Rosa, Height/Weight Height: 5 ft 6 in Weight: 115.666 kg Allergies Allergy/AdvReac Type Severity Reaction Status Date / Time No Known Allergies Allergy Verified 08/11/24 12:53 Medications Home Medications Medication Instructions Recorded Confirmed Last Taken acetaminophen 650 mg 650 - 1,300 mg PO TID PRN Pain 07/01/23 08/11/24 07/09/23 03:15 tablet,extended release albuterol sulfate 90 mcg/actuation 1 inh inhalation UD PRN asthma 07/01/23 08/11/24 Unknown aerosol inhaler amlodipine 5 mg tablet 5 mg PO QAM 07/01/23 08/11/24 07/09/23 03:15 diclofenac sodium 1 % topical gel 2 g topical DAILY PRN Pain 07/01/23 08/11/24 07/08/23 08:00 dupilumab 300 mg/2 mL subcutaneous 300 mg subcut UD 07/01/23 08/11/24 07/08/23 13:00 syringe ([employer]) escitalopram oxalate 10 mg tablet 10 mg PO QPM 07/01/23 08/11/24 07/08/23 21:00 (Lexapro) fluticasone propionate 110 1 puff inhalation BID 07/01/23 08/11/24 07/09/23 03:15 mcg/actuation HFA aerosol inhaler fluticasone propionate 50 1 spray intranasal BID 07/01/23 08/11/24 07/09/23 03:15 mcg/actuation nasal spray,suspension hydrochlorothiazide 12.5 mg tablet 12.5 mg PO QAM 07/01/23 08/11/24 07/08/23 08:00 ibuprofen 200 mg tablet 400 mg PO QID PRN Pain 07/01/23 08/11/24 07/02/23 levocetirizine 5 mg tablet (Xyzal) 5 mg PO QPM 07/01/23 08/11/24 Unknown levothyroxine 25 mcg tablet 50 mcg PO QAM 07/01/23 08/11/24 07/09/23 03:15 losartan 50 mg tablet 50 mg PO QAM 07/01/23 08/11/24 07/08/23 08:00 multivitamin 1 cap PO QAM 07/01/23 08/11/24 07/08/23 08:00 naproxen 500 mg tablet 500 mg PO BID 07/01/23 08/11/24 07/02/23 omeprazole 20 mg tablet,delayed 20 mg PO QAM 07/01/23 08/11/24 07/09/23 03:15 release secukinumab 150 mg/mL subcutaneous 300 mg subcut UD 07/01/23 08/11/24 07/06/23 08:00 syringe (Cosentyx) acidophilus 100 million 1 cap PO QAM 07/09/23 08/11/24 07/08/23 20:00 cell-pectin, citrus 10 mg capsule Past Medical History Medical History (Updated 08/17/24 @ 13:58 by Rosalva Merrill PA-C) Ankylosing spondylitis Asthma controlled/last use rescue inhaler yrs ago; also on dupixent Chronic sinusitis managed with Dupixent and nasal spray History of anesthesia reaction hx short tempered/not violent. History of anxiety HTN (hypertension) Hx of gastroesophageal reflux (GERD) Hypertriglyceridemia monitoring diet Hypothyroidism Legg-Perthes disease hx, resolved with surgery Morbid obesity BERNADINE (obstructive sleep apnea) CPAP Pinched nerve lumbar, resolved with surgery Prediabetes Sinus problem sinus inflammation. Past Surgical History Surgical History (Updated 08/17/24 @ 13:58 by Rosalva Merrill PA-C) History of carpal tunnel release of both wrists History of ear surgery History of esophagogastroduodenoscopy (EGD) History of foot surgery right History of lumbar fusion L2-S1, decompression and fusion 07/09/2023: [place]: Glidescope#3, ETT#7.5, Gr View 1 History of sinus surgery History of tonsillectomy History of total left hip replacement History of urologic surgery hx kinked ureter, 2 stent sx's and 1 open procedure for. Hx of colonoscopy Social History Smoking Status: Never smoker Do You Dip or Chew Tobacco: No Hx Alcohol Use: No Hx Substance Use: No substance use type: does not use Testing Laboratory Results 08/02/24: WBC: 6.3 H/H: 14.3/42.8 PLATELETS: 297 SODIUM: 139 POTASSIUM: 3.8 CHLORIDE: 100 CO2: 23 BUN: 15 CREATININE: 1.21 GLUCOSE: 123 UA: -nitrite, -Bacteria urine culture: no growth 08/09/24: PT: 10.8 PTT: 29 INR: 1.0 Electrocardiogram Date: 08/08/24 SR with occasional PVCs (1 PVC seen); Rate: 77bpm
[2024-08-24] MEDS: GABAPENTIN 600 MG DOSE PO SCH (08:58)
[2024-08-24] MEDS: ACETAMINOPHEN 500 MG TAB PO SCH (08:59)
[2024-08-24] MEDS: CeleBREX 200 MG CAP PO SCH (08:59)
[2024-08-24] MEDS: LR 15ML/HR IV SCH (09:00)
[2024-08-24] MEDS: LR 60ML/HR IV SCH (09:00)
[2024-08-24] MEDS ORDERED: ONDANSETRON INJ 2 MG/ML 2 ML VIAL ONE (09:26)
[2024-08-24] MEDS ORDERED: LIDOCAINE 2% 2 ML VIAL/AMP(20MG/ML) INFIL ONE (09:26)
[2024-08-24] MEDS ORDERED: PROPOFOL IV EMULSION 10 MG/ML 20 ML VIAL IV ONE (09:26)
[2024-08-24] MEDS ORDERED: ROCURONIUM BROMIDE 10 MG/ML 5 ML VIAL IV ONE (09:26)
[2024-08-24] MEDS ORDERED: fentaNYL citrate PF 100 MCG/2 ML VIAL ONE (09:26)
[2024-08-24] MEDS ORDERED: DEXAMETHASONE SOD INJ 4 MG/ML VIAL ONE (09:26)
[2024-08-24] MEDS ORDERED: MIDAZOLAM HCL 1 MG/ML 2ML VIAL ONE (09:26)
[2024-08-24] MEDS ORDERED: PROMETHAZINE HCL 6.25 MG in SODIUM CHLORIDE 0.9% 50 ML IV PRN (09:37)
[2024-08-24] MEDS ORDERED: ATROPINE SULFATE 0.1 MG/ML 10ML SYR IV PRN (09:37)
[2024-08-24] MEDS ORDERED: ePHEDrine sulfate 50 MG/ML AMP IV PRN (09:37)
[2024-08-24] MEDS ORDERED: ONDANSETRON INJ 2 MG/ML 2 ML VIAL IV PRN ×2 (09:37→14:19)
[2024-08-24] MEDS ORDERED: HYDROmorphone INJ 1 MG/ML SYRINGE IV PRN ×2 (09:37→14:19)
--- NOTE | 2024-08-24 09:54 | History & Physical Bridge Note ---
Date of Service August 24, 2024 History & Physical Bridge Note I have examined the patient, reviewed the History & Physical and in the interval since the performance of the History & Physical I have noted the following changes of clinical significance: no changes noted
--- NOTE | 2024-08-24 09:55 | History & Physical Report ---
Date of Service August 24, 2024 Assessment & Plan (1) Cervical stenosis of spinal canal: Plan: Anterior cervical discectomy and fusion C5-C7 possible C7-T1 History of Present Illness Chief Complaint: Neck and arm pain Primary Care Provider: Jay Bucio MD This is a 54-year-old male presents with chronic persistent neck and arm radiculopathy. Failing course of nonoperative care is here for surgical intervention. Allergies Allergy/AdvReac Type Severity Reaction Status Date / Time No Known Allergies Allergy Verified 08/24/24 08:40 Home Medications Medication Instructions Recorded Confirmed Type acetaminophen 650 mg 650 - 1,300 mg PO TID PRN Pain 07/01/23 08/24/24 History tablet,extended release albuterol sulfate 90 mcg/actuation 1 inh inhalation UD PRN asthma 07/01/23 08/24/24 History aerosol inhaler amlodipine 5 mg tablet 5 mg PO QAM 07/01/23 08/24/24 History diclofenac sodium 1 % topical gel 2 g topical DAILY PRN Pain 07/01/23 08/24/24 History dupilumab 300 mg/2 mL subcutaneous 300 mg subcut UD 07/01/23 08/24/24 History syringe (Dupixent) escitalopram oxalate 10 mg tablet 10 mg PO QPM 07/01/23 08/24/24 History (Lexapro) fluticasone propionate 110 1 puff inhalation BID 07/01/23 08/24/24 History mcg/actuation HFA aerosol inhaler fluticasone propionate 50 1 spray intranasal BID 07/01/23 08/24/24 History mcg/actuation nasal spray,suspension hydrochlorothiazide 12.5 mg tablet 12.5 mg PO QAM 07/01/23 08/24/24 History ibuprofen 200 mg tablet 400 mg PO QID PRN Pain 07/01/23 08/24/24 History levocetirizine 5 mg tablet (Xyzal) 5 mg PO QPM 07/01/23 08/24/24 History levothyroxine 25 mcg tablet 50 mcg PO QAM 07/01/23 08/24/24 History losartan 50 mg tablet 50 mg PO QAM 07/01/23 08/24/24 History multivitamin 1 cap PO QAM 07/01/23 08/24/24 History naproxen 500 mg tablet 500 mg PO BID 07/01/23 08/24/24 History omeprazole 20 mg tablet,delayed 20 mg PO QAM 07/01/23 08/24/24 History release secukinumab 150 mg/mL subcutaneous 300 mg subcut UD 07/01/23 08/24/24 History syringe (Cosentyx) acidophilus 100 million 1 cap PO QAM 07/09/23 08/24/24 History cell-pectin, citrus 10 mg capsule Past Med/Surg History Problem List (Updated 08/24/24 @ 09:54 by Srini Rosa DO) Cervical stenosis of spinal canal Obstructive sleep apnea Rash of hand 06/2023 Anxiety Chronic sinusitis Hypothyroidism Neurogenic claudication due to lumbar spinal stenosis Encounter for pre-operative examination Acid reflux Ankylosing spondylitis HTN (hypertension) Medical History (Updated 08/24/24 @ 09:54 by Srini Rosa DO) Prediabetes Hypertriglyceridemia monitoring diet HTN (hypertension) Morbid obesity Ankylosing spondylitis Hypothyroidism Chronic sinusitis managed with Dupixent and nasal spray History of anxiety Hx of gastroesophageal reflux (GERD) BERNADINE (obstructive sleep apnea) CPAP Pinched nerve lumbar, resolved with surgery History of anesthesia reaction hx short tempered/not violent. Legg-Perthes disease hx, resolved with surgery Asthma controlled/last use rescue inhaler yrs ago; also on dupixent Sinus problem sinus inflammation. Surgical History Hx of colonoscopy History of esophagogastroduodenoscopy (EGD) History of lumbar fusion L2-S1, decompression and fusion 07/09/2023: [place]: Glidescope#3, ETT#7.5, Gr View 1 History of carpal tunnel release of both wrists History of foot surgery right History of total left hip replacement History of urologic surgery hx kinked ureter, 2 stent sx's and 1 open procedure for. History of tonsillectomy History of ear surgery History of sinus surgery Social History Smoking Status: Never smoker Second Hand Exposure: No; Do You Dip or Chew Tobacco: No; Tobacco Cessation Education Requested by Patient: No Hx Alcohol Use: No Hx Substance Use: No Preferred Language: Divehi Communication Ability: Effective Block Sawyer Required: No Beliefs That Will Affect Care: None Current Living Situation: Spouse Other Information That Helps Us Care for You: No Feels Safe at Home: Yes Safety Concerns: Feels Safe At This Time Assistive Devices: CPAP and Glasses Physical Exam Physical Exam: Patient is alert and oriented Heart regular rhythm Lungs clear Results & Data Results & Data Vital Signs (Past 12 Hours) Vital Signs Temp Pulse Resp BP Pulse Ox O2 Del Method 08/24/24 08:48 Room Air 08/24/24 08:48 36.6 C 75 20 146/97 H 95 Room Air
[2024-08-24] MEDS: ceFAZolin 2000MG 2,000 MG/15 ML SYR IV SCH ×2 (10:38→20:05)
[2024-08-24] MEDS ORDERED: ePHEDrine sulfate 50 MG/5 ML SYR ONE (11:18)
[2024-08-24] MEDS: FLOSEAL HEMOSTATIC MATRIX 10ML TOP ONE (12:40)
[2024-08-24] MEDS: ceFAZolin 330 MG/ML 1 GM VIAL ONE (12:41)
--- NOTE | 2024-08-24 12:55 | Operative Report ---
Post Operative Report Pre & Post Diagnosis Operation Date: 08/24/24 10:05 Pre-Op Diagnosis: #1 cervical spondylosis with radiculopathy. #2 morbid obesity Post-Op Diagnosis: Same I identified the patient and participated in the time-out.: Yes Procedure Operation Date: 08/24/24 10:05 Actual Procedures #1 anterior cervical discectomy with bilateral foraminotomies C5-C6, C6-C7 and C7-T1. #2 anterior cervical arthrodesis C5-C6, C6-C7 and C7-T1. #3 placement of Spira 9 mm cage at C5-C6, 8 mm cage at C6-C7, 9 mm cage at C7 and T1. #4 placement of os design bone graft interbody cages. #5 application of K2 and plate and screws from C5-T1. Surgeon Srini Rosa, DO Sports Equipment Repairer Cindy Moore Estimated Blood Loss 50 Findings See Below Patient is 5 foot 6 weighing 116 kg with a BMI in excess of 41. The patient's body habitus did contribute to significant technical difficulty with positioning exposure and the procedure itself and at least 50% increased operative time. Specimens None Indications This is a 54-year-old male presents publish diagnosis after failing course of nonoperative care is here for surgical invention. Description of Procedure Patient is met with identified informed consent obtained. Patient was then taken to the operative suite underwent intubation placed in a supine position on the Micheal table with head Isidro head ordered. All bony promises well- padded eyes inspected to ensure no external precipice upon the. This point the anterior cervical spine was prepped and draped no sterile fashion. The assistance of fluoroscopy identified the C6-C7 disc base and a transverse incision was placed along the right anterior aspect of the cervical spine overlying this region. Blunt dissection with the assistance of bipolar electrocautery performed down to and exposing the anterior cervical spine from C5-T1. Self-retaining retractors placed. Informed complete discectomy of C5 C6 to the uncovertebral was bilaterally. [place] distracting pins utilized to assist in visualization. Removed all posterior annular fibers longitudinal ligament bilateral foraminotomies performed. Endplates burred to subcortical bleeding bone and 9 mm Spira cage filled with os design bone graft tapped in position. Then proceeded to C6-C7. Again complete discectomy performed out to the uncovertebral and bilaterally. [place] distracting pins again utilized. Removed all posterior annular fibers and longitudinal ligament bilateral for aminotomies performed. Endplates burred to subcortical bleeding bone. An 8 mm Spira cage filled with os design bone graft and tapped in position. Lastly approached C7-T1. Again complete discectomy performed up to the uncovertebral was bilaterally. [place] distracting pins again utilized. I removed all posterior annular fibers longitudinal ligament bilateral foraminotomies performed. Endplates burred to subcortical main bone and a 9 mm Spira cage filled with os design bone graft apposition. Distracting apparatus was removed. All anterior osteophytes burred to smooth cortical surface. K2 and plate and screws applied with the assistance of fluoroscopy. The incision was then copiously irrigated explored to ensure no damage to surrounding structures remaining bleeding. 10 round SEE drain inserted. Incision was then closed with 2 Vicryl in the fashion of 4 Monocryl for final skin closure. Steri-Strips sterile dressing placed. Patient waken taken to PACU stable condition. Please note spinal cord monitoring was utilized out the procedure no changes noted. Cindy Moore was present at the entire surgery and while the patient positioning complex portion of the surgery and final skin closure. I attest to the content of the Intraoperative Record and any orders documented therein. Any exceptions are noted below.
[2024-08-24] MEDS ORDERED: SUGAMMADEX SODIUM 200 MG/2 ML VIAL IV ONE (13:06)
[2024-08-24] MEDS: fentaNYL citrate PF 100 MCG/2 ML VIAL IV PRN (13:15)
--- NOTE | 2024-08-24 14:15 | Anesthesiology Progress Note ---
Date of Service August 24, 2024 Anesthesia Post Procedure Vital Signs Vital Signs: Temp Pulse Pulse Resp BP Pulse Ox O2 Del Method 08/24/24 14:10 36.7 C 88 22 157/95 H 94 Nasal Cannula 08/24/24 14:00 93 H 15 165/97 H 96 Nasal Cannula 08/24/24 13:50 92 H 24 153/96 H 98 Nasal Cannula 08/24/24 13:40 92 H 17 157/86 H 98 Nasal Cannula 08/24/24 13:30 86 15 163/94 H 93 Oxymask 08/24/24 13:20 84 16 152/89 H 94 Oxymask 08/24/24 13:10 94 H 14 153/87 H 100 Oxymask 08/24/24 13:02 36.2 C L 88 14 146/87 H 95 Oxymask 08/24/24 08:48 Room Air 08/24/24 08:48 36.6 C 75 20 146/97 H 95 Room Air O2 Flow Rate 08/24/24 14:10 2 08/24/24 14:00 2 08/24/24 13:50 4 08/24/24 13:40 4 08/24/24 13:30 6 08/24/24 13:20 6 08/24/24 13:10 10 08/24/24 13:02 10 08/24/24 08:48 08/24/24 08:48 Pain Intensity Bilateral Neck: Pain Intensity: 7 Back: Pain Intensity: 4 Transfer of Care Handoff Completed per policy Notes Mental Status: alert / awake / arousable and participated in evaluation Nausea / Vomiting: adequately controlled Pain: adequately controlled Airway Patency, RR, SpO2: stable & adequate BP & HR: stable & adequate Hydration State: stable & adequate Anesthetic Complications: no major complications apparent and Pt Satisfied with anesthetic care
[2024-08-24] MEDS ORDERED: RACEPINEPHRINE 2.25% NEBU SOLN 0.5 ML VIAL INH PRN (14:19)
[2024-08-24] MEDS ORDERED: PROMETHAZINE 12.5 MG/50.5 ML BAG IV PRN (14:19)
[2024-08-24] MEDS ORDERED: ONDANSETRON 4 MG OD TAB PO PRN (14:19)
[2024-08-24] MEDS ORDERED: NALOXONE HCL 0.4 MG/1 ML VIAL/CARP IV PRN (14:19)
[2024-08-24] MEDS ORDERED: ALBUTEROL HFA 8 GM INHALER INH PRN (14:19)
[2024-08-24] MEDS ORDERED: MAGNESIUM HYDROXIDE SUSP 30 ML UDC PO PRN (14:19)
[2024-08-24] MEDS ORDERED: HYDROmorphone INJ 0.5 MG/0.5 ML SYR IV PRN (14:19)
[2024-08-24] MEDS ORDERED: ACETAMINOPHEN 1,000 MG/100 ML VIAL IV PRN (14:19)
[2024-08-24] MEDS ORDERED: DO NOT ADMINISTER FLU VACCINE PRN (14:19)
[2024-08-24] MEDS ORDERED: hydrOXYzine HCl 25 MG TAB PO PRN (14:19)
[2024-08-24] MEDS ORDERED: DO NOT ADMINISTER PNEUMOCOCCAL VACCINE PRN (14:19)
[2024-08-24] MEDS ORDERED: diphenhydrAMINE Capsule 25 MG CAP PO PRN (14:19)
[2024-08-24] MEDS ORDERED: oxyCODONE HCL IR 5 MG TAB (IMMEDIATE RELEASE) PO PRN (14:19)
[2024-08-24] MEDS ORDERED: METOCLOPRAMIDE HCL INJ 5 MG/ML 2 ML VIAL IV PRN (14:19)
[2024-08-24] MEDS ORDERED: dexAMETHasone 8 MG in SYRINGE 0 ML IV PRN (14:19)
[2024-08-24] MEDS ORDERED: bisacodyL 10 MG SUPP PR PRN (14:19)
[2024-08-24] MEDS ORDERED: FAMOTIDINE 20 MG TAB PO PRN (14:19)
[2024-08-24] MEDS ORDERED: LORazepam 0.5 MG TAB PO PRN (14:19)
[2024-08-24] MEDS ORDERED: LORazepam 2 MG/1 ML VIAL IV PRN (14:19)
[2024-08-24] MEDS ORDERED: SOD PHOSPHATE/SOD BIPHOSPHATE ENEMA 132 ML BTL PR PRN (14:19)
[2024-08-24] MEDS ORDERED: ALUMINUM/MAGNESIUM SUSP 30 ML UDC PO PRN (14:19)
--- NOTE | 2024-08-24 15:19 | Hospitalist Consultation ---
Date of Consultation August 24, 2024 Assessment & Plan (1) Cervical stenosis of spinal canal: Assessment: 1. Cervical radiculopathy of cervical spinal stenosis. Status post: "#1 anterior cervical discectomy with bilateral foraminotomies C5-C6, C6-C7 and C7- T1. #2 anterior cervical arthrodesis C5-C6, C6-C7 and C7-T1. #3 placement of Spira 9 mm cage at C5-C6, 8 mm cage at C6-C7, 9 mm cage at C7 and T1. #4 placement of os design bone graft interbody cages. #5 application of K2 and plate and screws from C5-T1". Postop day 0 today. 2. Essential hypertension. He is running 160s over 90s currently. He did not take his losartan this morning we will cancel and reorder that to begin today. Monitor. Continue other home medications as ordered. 3. Hypothyroidism continue hormone replacement therapy with Synthroid 50 mcg daily. Recheck TSH in the a.m. 4. GERD. Continue PPI. 5. Obstructive sleep apnea. Patient has his home CPAP machine which she can use. He has nasal pillows which will not interfere with his cervical hard collar. Discussed with nursing staff. Plan: As discussed above. Will obtain some postoperative laboratory studies in the AM. Please refer to orders for further planning. We thank you for the opportunity to Co. participate in the care of Mr. Hung as he continues to convalesce his cervical spinal surgery. History of Present Illness Reason for Consultation: Postoperative medical management Attending Physician: Srini Rosa DO History of Present Illness Pleasant 54-year-old male with a history of cervical spinal stenosis with cervical radiculopathy. Patient presented to [facility] earlier this morning and underwent elective cervical spine surgery as discussed below. Postoperative consultation was obtained for Co. medical management during his stay. Allergies Allergy/AdvReac Type Severity Reaction Status Date / Time No Known Allergies Allergy Verified 08/24/24 08:40 Home Medications Medication Instructions Recorded Confirmed Type acetaminophen 650 mg 650 - 1,300 mg PO TID PRN Pain 07/01/23 08/24/24 History tablet,extended release albuterol sulfate 90 mcg/actuation 1 inh inhalation UD PRN asthma 07/01/23 08/24/24 History aerosol inhaler amlodipine 5 mg tablet 5 mg PO QAM 07/01/23 08/24/24 History diclofenac sodium 1 % topical gel 2 g topical DAILY PRN Pain 07/01/23 08/24/24 History dupilumab 300 mg/2 mL subcutaneous 300 mg subcut UD 07/01/23 08/24/24 History syringe (Dupixent) escitalopram oxalate 10 mg tablet 10 mg PO QPM 07/01/23 08/24/24 History (Lexapro) fluticasone propionate 110 1 puff inhalation BID 07/01/23 08/24/24 History mcg/actuation HFA aerosol inhaler fluticasone propionate 50 1 spray intranasal BID 07/01/23 08/24/24 History mcg/actuation nasal spray,suspension hydrochlorothiazide 12.5 mg tablet 12.5 mg PO QAM 07/01/23 08/24/24 History ibuprofen 200 mg tablet 400 mg PO QID PRN Pain 07/01/23 08/24/24 History levocetirizine 5 mg tablet (Xyzal) 5 mg PO QPM 07/01/23 08/24/24 History levothyroxine 25 mcg tablet 50 mcg PO QAM 07/01/23 08/24/24 History losartan 50 mg tablet 50 mg PO QAM 07/01/23 08/24/24 History multivitamin 1 cap PO QAM 07/01/23 08/24/24 History naproxen 500 mg tablet 500 mg PO BID 07/01/23 08/24/24 History omeprazole 20 mg tablet,delayed 20 mg PO QAM 07/01/23 08/24/24 History release secukinumab 150 mg/mL subcutaneous 300 mg subcut UD 07/01/23 08/24/24 History syringe (Cosentyx) acidophilus 100 million 1 cap PO QAM 07/09/23 08/24/24 History cell-pectin, citrus 10 mg capsule Patient History Medical History (Updated 08/24/24 @ 09:54 by Srini Rosa DO) Prediabetes Hypertriglyceridemia monitoring diet HTN (hypertension) Morbid obesity Ankylosing spondylitis Hypothyroidism Chronic sinusitis managed with Dupixent and nasal spray History of anxiety Hx of gastroesophageal reflux (GERD) BERNADINE (obstructive sleep apnea) CPAP Pinched nerve lumbar, resolved with surgery History of anesthesia reaction hx short tempered/not violent. Legg-Perthes disease hx, resolved with surgery Asthma controlled/last use rescue inhaler yrs ago; also on dupixent Sinus problem sinus inflammation. Surgical History Hx of colonoscopy History of esophagogastroduodenoscopy (EGD) History of lumbar fusion L2-S1, decompression and fusion 07/09/2023: GA: Glidescope#3, ETT#7.5, Gr View 1 History of carpal tunnel release of both wrists History of foot surgery right History of total left hip replacement History of urologic surgery hx kinked ureter, 2 stent sx's and 1 open procedure for. History of tonsillectomy History of ear surgery History of sinus surgery Social History Smoking Status: Never smoker Second Hand Exposure: No; Do You Dip or Chew Tobacco: No; Tobacco Cessation Education Requested by Patient: No Hx Alcohol Use: No Hx Substance Use: No Preferred Language: Ghanaian Communication Ability: Effective Drafter Electromechanical Required: No Beliefs That Will Affect Care: None Current Living Situation: Spouse Other Information That Helps Us Care for You: No Feels Safe at Home: Yes Safety Concerns: Feels Safe At This Time Assistive Devices: CPAP and Glasses Review of Systems Review of Systems: A 10 point review of system was obtained and unless otherwise stated here or in history of present illness are negative and noncontributory to chief complaint. Physical Exam Physical Exam: In General: In general pleasant 54-year-old male was alert and oriented x 3 at the time of my exam. He is accompanied by his at the time of my examination. He has minimal postoperative discomfort not out of proportion to his procedure. HEENT: Normocephalic atraumatic pupils are equal round and reactive to light bilaterally. No scleral icterus no conjunctival injection external auditory canals are patent septum is in the midline nose is without discharge oral mucosa is pink and moist without lesion. NECK: Exam limited due to current hard cervical spine collar in place postoperatively. Surgical drain noted draining serosanguineous fluid. HEART: Regular rate and rhythm I do not appreciate any ectopy or rub. No murmur. LUNGS: Clear to auscultation bilaterally and anteriorly with no evidence of adventitious sounds/wheezes rales or rhonchi. ABDOMEN: Soft nontender, no rebound, no peritoneal signs, positive bowel sounds, no appreciable organomegaly. EXTREMITIES: Intact, no peripheral cyanosis, clubbing or edema. Strength is 5 out of 5 in extremities x4,. NEUROLOGICAL: Cranial nerves II through XII are grossly intact with no focal deficit elicited upon examination. Results & Data Results & Data Vital Signs (Past 12 Hours) Vital Signs Temp Pulse Pulse Resp BP Pulse Ox O2 Del Method 08/24/24 14:52 89 18 152/89 H 95 Nasal Cannula 08/24/24 14:40 87 15 97 Nasal Cannula 08/24/24 14:34 36.7 C 88 18 155/88 H 97 Room Air, Nasal Cannula 08/24/24 14:10 36.7 C 88 22 157/95 H 94 Nasal Cannula 08/24/24 14:00 93 H 15 165/97 H 96 Nasal Cannula 08/24/24 13:50 92 H 24 153/96 H 98 Nasal Cannula 08/24/24 13:40 92 H 17 157/86 H 98 Nasal Cannula 08/24/24 13:30 86 15 163/94 H 93 Oxymask 08/24/24 13:20 84 16 152/89 H 94 Oxymask 08/24/24 13:10 94 H 14 153/87 H 100 Oxymask 08/24/24 13:02 36.2 C L 88 14 146/87 H 95 Oxymask 08/24/24 08:48 Room Air 08/24/24 08:48 36.6 C 75 20 146/97 H 95 Room Air O2 Flow Rate 08/24/24 14:52 2 08/24/24 14:40 2 08/24/24 14:34 08/24/24 14:10 2 08/24/24 14:00 2 08/24/24 13:50 4 08/24/24 13:40 4 08/24/24 13:30 6 08/24/24 13:20 6 08/24/24 13:10 10 08/24/24 13:02 10 08/24/24 08:48 08/24/24 08:48 PG Care Time/CCT Total # of Minutes Spent Total Time Spent with Patient: Total time spent is greater than 50% in coordination of care (as documented) at patient's floor/unit and/or counseling patient: Coding Level of Care Code 52761 IN/OBS CONSULT LVL 4,60M Diagnoses Cervical stenosis of spinal canal M48.02
[2024-08-24] MEDS: LOSARTAN POTASSIUM 50 MG TAB PO SCH (15:27)
--- NOTE | 2024-08-24 15:36 | Fluoroscopy Report ---
FL cervical 2-3V CLINICAL HISTORY: C5-C7 ACDF POSSIBLE C7-T1 COMPARISON STUDY: None FLUOROSCOPY TIME: 15.5 seconds FLUOROSCOPY IMAGES: 2 EXPOSURE DOSE: 5.13 mGy FINDINGS: Fluoroscopic guidance provided IMPRESSION: Refer to the operative report for evaluation based upon real-time fluoroscopic observatio n. ACT 112: Negative or not required by law. Electronically signed by: Renée Pereira M.D. 08/24/2024 3:34 PM
[2024-08-24] MEDS: ACETAMINOPHEN 500 MG TAB PO PRN (18:56)
[2024-08-24] MEDS: DOCUSATE SODIUM/SENNA 50/8.6MG TAB PO SCH (20:04)
[2024-08-24] MEDS: FLUTICASONE PROPIONATE NA SPR 16 GM BTL SCH (20:05)
[2024-08-24] MEDS: ESCITALOPRAM OXALATE 10 MG TAB PO SCH (20:05)
[2024-08-24] MEDS: CETIRIZINE HCL 10 MG TABLET PO SCH (20:10)
[2024-08-24] MEDS: traMADol HCL 50 MG TABLET PO PRN (20:16)
[2024-08-25] MEDS: amLODIPine BESYLATE 5 MG TAB PO SCH (03:08)
[2024-08-25] MEDS: LEVOTHYROXINE SODIUM 50 MCG TABLET PO SCH (03:08)
[2024-08-25] MEDS: hydroCHLOROthiazide 25 MG TAB PO SCH (03:09)
[2024-08-25] MEDS: POLYETHYLENE (MIRALAX) 17 GM PACK PO SCH (05:02)
[2024-08-25 07:59] LABS: Basophils # (auto) 0.01 K/uL (0.00-0.20); Basophils % (auto) 0.1 %; Eosinophils # (auto) 0.01 K/uL (0.00-0.50); Eosinophils % (auto) 0.1 %; Hematocrit (blood only) 41.4 % (42.0-52.0); Hemoglobin 13.6 g/dl (14.0-18.0); Immature Granulocytes # (auto) 0.05 K/uL (0.01-0.20); Immature Granulocytes % (auto) 0.4 %; Lymphocytes # (auto) 0.93 K/uL (1.20-3.40); Lymphocytes % (auto) 7.2 %; Mean Corpuscular Hgb Conc 32.9 g/dL (32.0-36.0); Mean Corpuscular Volume 88.3 fL (80.0-100.0); Mean Platelet Volume 9.8 fL (9.4-12.4); Monocytes # (auto) 0.82 K/uL (0.11-0.59); Monocytes % (auto) 6.3 %; Neutrophils # (auto) 11.13 K/uL (1.40-6.50); Neutrophils % (auto) 85.9 %; Platelet Count 286 K/uL (130-400); RDW Coefficient of Variation 14.4 % (11.5-14.5); RDW Standard Deviation 45.6 fL (36.4-46.3); Red Blood Count 4.69 M/uL (4.70-6.10); White Blood Count 12.95 K/ul (4.8-10.8)
[2024-08-25] MEDS: MULTIVITAMIN TAB PO SCH (08:28)
[2024-08-25] MEDS: dexAMETHasone 6 MG in SYRINGE 0 ML IV SCH (08:29)
[2024-08-25] MEDS: PANTOprazole 40 MG TAB PO SCH (08:29)
[2024-08-25 08:30] LABS: Alanine Aminotransferase 23 U/L (7-52); Albumin Globulin Ratio 1.6 (0.9-2); Albumin Level 4.6 gm/dl (3.4-5.0); Alkaline Phosphatase 58 U/L (34-104); Anion Gap 7 (3-11); BUN Creatinine Ratio 16.8 (10-20); Bilirubin,Total 0.5 mg/dl (0.2-1.0); Blood Urea Nitrogen 17 mg/dl (6-23); Calcium 9.2 mg/dl (8.6-10.3); Carbon Dioxide 31 mmol/L (21-32); Chloride 98 mmol/L (98-107); Chol HDL Ratio 4.5 (0-5); Cholesterol 181 mg/dl (0-200); Creatinine Clr Calc Pharmacy 97.8 ml/min; Globulin 2.8 gm/dl (2.5-4.0); Glucose 123 mg/dl (70-99(Fasting)); HDL Cholesterol 40 mg/dl; LDL Cholesterol Calculated 115 mg/dl; Sodium 136 mmol/L (136-145); Thyroid Stimulating Hormone 0.316 uIu/ml (0.300-4.500); Total Protein 7.4 gm/dl (6.0-8.3); Triglycerides 132 mg/dl (0-150); VLDL Cholesterol 26 mg/dl (0-30)
[2024-08-25] MEDS: FLUTICASONE FUROATE 100MCG 14 PUFFS/INHALER INH SCH (08:31)
[2024-08-25] MEDS ORDERED: LOSARTAN POTASSIUM 50 MG TAB PO SCH (09:00)
[2024-08-25 09:35] LABS: Potassium 3.8 mmol/L (3.5-5.1)
--- NOTE | 2024-08-25 10:03 | Discharge Summary ---
Date of Service August 25, 2024 Admission HPI Per Admitting Provider This is a 54-year-old male presents with chronic persistent neck and arm radiculopathy. Failing course of nonoperative care is here for surgical intervention. Principal Diagnosis Cervical spondylosis with radiculopathy Discharge Data Allergies Allergy/AdvReac Type Severity Reaction Status Date / Time No Known Allergies Allergy Verified 08/24/24 08:40 Consultations 08/24/24 14:19 Consult Hospitalist Routine Procedures Performed Operation Date: 08/24/24 10:05 Actual Procedures p C5-C7, C7-T1 Anterior Cervical Discectomy Fusion, Spinal Cord Monitoring(Not Applicable) - Srini Rosa DO Ordered Studies 08/24/24 10:05 [place] cervical 2-3V Routine Hospital Course (1) Cervical stenosis of spinal canal: Patient underwent anterior cervical discectomy and fusion trial as well as taken orthopedic for postoperative. Postoperatively swallowing well. No hoarseness. Excellent strength testing. Arm symptoms improved. SEE drain decreasing. Simply discharged home. Discharge orders instructions from the chart for further review. Total Time Total Time Spent Total Time Spent (In Minutes): 20 minutes Discharge Plan Discharge Items Patient Disposition: Home - Self-Care Reason For Visit: Cervical Radiculopathy Cervical Spondylosis with Discharge Diagnosis: cervical radiculopathy Activity: As commented below Non-emergency contact: Primary Care Provider Call non-emergency contact if: you have any medication questions Follow-up/Referrals: Jay Bucio MD [Primary Care Provider] - Diet: Regular Addtl Attending Provider Instructions: ACTIVITY RECOMMENDATIONS: SELF CARE INSTRUCTIONS AFTER CERVICAL FUSIONS 1. No smoking. Smoking drastically decreases the chance of a solid fusion. 2. No bending, lifting more than 5 pounds, or twisting (roll like a log when turning in bed). 3. You may shower 3 days after surgery. Thoroughly dry wound. Do not soak in the tub. 4. Cervical collar: Must be worn at all times including sleeping. You may remove the brace only to bath, eat and if you are sitting in a recliner. 5. Please walk as much as you can for exercise. Gradually increase the distance that you walk as your endurance increases. 6. You may return to previous diet. SPECIAL CARE INSTRUCTIONS: VERY IMPORTANT TO READ AND REVIEW A. Do not take any anti-inflammatory medications (i.e. Indocin, Advil, Aspirin, Naprosyn, Aleve, Motrin, etc.) as these may inhibit the chance of a solid fusion. Tylenol is okay to take. B. Your surgical incision has been closed with a cosmetic suture under the skin that will dissolve in about 6 weeks. In 14 days, you can use a pair of clean scissors and cut the suture that is left outside of the skin at the ends of your incision. C. Complications are uncommon, but please contact us if you have any signs or symptoms of: 1. wound infection (fever higher than 102.5 degrees F, redness, separation of wound, drainage, or increasing pain from the incision) 2. blood clots in legs (pain, swelling, redness and warmth in legs) 3. urinary tract infection (fever higher than 102.5 degrees, burning upon urination or increased frequency of urination) 4. nerve problems (inability to walk on your toes or heels, numbness, loss of bowel or bladder control) 5. any other symptoms that concern you. D. Please call the office at if you have any concerns or questions about your operation or recovery. MANAGING PAIN AFTER SPINAL SURGERY 1. Narcotic medication is intended for short-term use and will be provided for surgical pain. Surgical pain usually lasts for a period of 4-6 weeks. Narcotic medication includes Percocet, Vicodin, Darvocet, Tylenol #3 or Lortab. 2. Longer-term pain is more appropriately treated with non-narcotic medication such as Tylenol ES. 3. Muscle spasm is not appropriately treated with narcotics. Muscle relaxers such as Soma, Flexeril or Skelaxin can be used along with Tylenol ES. 4. Remember that we all live with some "aches and pains". This is not unusual or uncommon after an injury or as we get older. 5. We will provide appropriate medication within the normal guidelines of their prescribed use. We will also be very cautious and aware of potential abuse and extended duration of patients' medication needs. 6. Please allow 2-3 days to process refills. Prescriptions will not be mailed but must be picked up at the office. FOLLOW UP VISIT: Keep your scheduled follow-up appointment. Any questions, please call the office at . Pending Studies at Discharge: No Stand-Alone Forms: [facility], Smoking Cessation Medications and DC Order Prescriptions: New tramadol 50 mg tablet 50 mg PO Q6H PRN (Reason: pain, moderate) Qty: 30 0RF Continued losartan 50 mg Tablet 50 mg PO QAM amlodipine 5 mg Tablet 5 mg PO QAM levothyroxine 25 mcg Tablet 50 mcg PO QAM acetaminophen 650 mg Tablet Extended Release 650 - 1,300 mg PO TID PRN (Reason: Pain) Patient Comments: current, 1 am, 1 breakfast and 2 at bedtime. multivitamin Capsule 1 cap PO QAM fluticasone propionate 50 mcg/actuation [place],Suspension 1 spray INTRANASAL BID Rx Instructions: administer into each nostril fluticasone propionate 110 mcg/actuation Hfa Aerosol Inhaler 1 puff INHALATION BID Patient Comments: 125 mcg strength. naproxen 500 mg Tablet 500 mg PO BID Patient Comments: Told to stop /pre op instructions. escitalopram oxalate [Lexapro] 10 mg Tablet 10 mg PO QPM hydrochlorothiazide 12.5 mg Tablet 12.5 mg PO QAM levocetirizine [Xyzal] 5 mg Tablet 5 mg PO QPM omeprazole 20 mg Tablet,Delayed Release (Dr/Ec) 20 mg PO QAM Cosentyx 150 mg/mL Syringe 300 mg SUBCUT UD Patient Comments: monthly Dupixent Syringe 300 mg/2 mL Syringe 300 mg SUBCUT UD Patient Comments: albuterol sulfate 90 mcg/actuation Hfa Aerosol Inhaler 1 inh INHALATION UD PRN (Reason: asthma) Patient Comments: rare use acidophilus-pectin, citrus 100 million cell-10 mg Capsule 1 cap PO QAM Discontinued ibuprofen 200 mg Tablet 400 mg PO QID PRN (Reason: Pain) Patient Comments: current regular use 4x perday. Told to stop 7 days prior before surgery. diclofenac sodium 1 % Gel 2 g TOPICAL DAILY PRN (Reason: Pain) Patient Comments: 1% Rx Instructions: apply to single elbow, wrist or hand; for hand includes palm/fingers/back of hand Admission Data Admit Date/Time: 08/24/24 13:01 Attending Provider: Srini Rosa Admit Provider: Srini Rosa Primary Care Provider: Jay Bucio Other Providers: Nikolay Obando
[2024-08-25 11:39] VITALS: O2SAT 94
[2024-08-25 11:47] VITALS: BP 128/75; PULSE 89; RESP 18; TEMP 98.2
== END 2024-08-25 12:17 | disposition home or self-care (01) ==
LOC: 3E 08:18 → ASU 08:18
DX: G47.33 Obstructive sleep apnea (adult) (pediatric); Z68.41 Body mass index [BMI] 40.0-44.9, adult; J45.909 Unspecified asthma, uncomplicated; E66.01 Morbid (severe) obesity due to excess calories; K21.9 Gastro-esophageal reflux disease without esophagitis; Z79.899 Other long term (current) drug therapy; M45.2 Ankylosing spondylitis of cervical region; I10 Essential (primary) hypertension; M47.812 Spondylosis without myelopathy or radiculopathy, cervical region